=== PATIENT | male | born 1985 | race Caucasian/White ===

== ENCOUNTER → 2017-08-15 | Emergency (ER) | payer OTHER ==
[~2017-08-15] VITALS: Ht 172.7 cm; Wt 72.6 kg
== END | disposition left against medical advice (07) ==
LOC: ER 22:22
DX: Z53.20 Procedure and treatment not carried out because of patient's decision for unspecified reasons (principal)

== ENCOUNTER → 2017-11-17 | Emergency (ER) | payer OTHER ==
[~2017-11-17] VITALS: Ht 175.3 cm; Wt 70.3 kg
[~2017-11-17] MED LIST: ASPIR 8181 MG; KETO10TA2 PO; NORFLEX100MG PO
== END | disposition home or self-care (01) ==
LOC: ER 23:42
DX: R07.89 Other chest pain (principal); M94.0 Chondrocostal junction syndrome [Tietze]

== ENCOUNTER → 2018-03-16 | Emergency (ER) | payer OTHER ==
[~2018-03-16] VITALS: Ht 172.7 cm; Wt 72.1 kg
== END | disposition home or self-care (01) ==
LOC: ER 18:52
DX: K64.8 Other hemorrhoids (principal); K62.5 Hemorrhage of anus and rectum

== ENCOUNTER 2018-11-11 20:08 | Emergency (ER) | payer OTHER ==
[~2018-11-11] VITALS: Ht 172.7 cm; Wt 76.7 kg
== END 2018-11-11 22:28 | disposition home or self-care (01) ==
LOC: ER 20:08
DX: J11.1 Influenza due to unidentified influenza virus with other respiratory manifestations (principal); R50.9 Fever, unspecified

== ENCOUNTER 2018-12-16 16:17 | Emergency (ER) | payer OTHER ==
[~2018-12-16] VITALS: Ht 172.7 cm; Wt 70.3 kg
== END 2018-12-16 18:51 | disposition home or self-care (01) ==
LOC: ER 16:17
DX: M25.561 Pain in right knee (principal)

== ENCOUNTER 2019-02-04 02:25 | Emergency (ER) | payer OTHER ==
[~2019-02-04] VITALS: Ht 172.7 cm; Wt 70.3 kg
[2019-02-04] MEDS ORDERED: METHYLPREDNISOLO4 MG (02:46)
[2019-02-04] MEDS ORDERED: MECLIZINE HCL25 MG PO (05:57)
== END 2019-02-04 06:02 | disposition home or self-care (01) ==
LOC: ER 02:25
DX: R42 Dizziness and giddiness (principal)

== ENCOUNTER 2019-12-26 14:18 | Emergency (ER) | payer OTHER ==
[~2019-12-26] VITALS: Ht 172.7 cm; Wt 70.3 kg
[~2019-12-26 14:18] MED LIST changes: +MECLIZINE HCL25 MG PO; +METHYLPREDNISOLO4 MG
== END 2019-12-26 18:49 | disposition home or self-care (01) ==
LOC: ER 14:18
DX: R07.89 Other chest pain (principal); F41.8 Other specified anxiety disorders; Z03.818 Encounter for observation for suspected exposure to other biological agents ruled out

== ENCOUNTER 2021-02-09 15:03 | Emergency (ER) | payer OTHER ==
[~2021-02-09] VITALS: Ht 175.3 cm; Wt 61.7 kg
== END 2021-02-09 18:16 | disposition home or self-care (01) ==
LOC: ER 15:03
DX: F41.8 Other specified anxiety disorders (principal)